=== PATIENT | male | born 1975 | race Two or more races ===

== ENCOUNTER → 2024-08-09 | Outpatient (CLI) | payer BC, SELFPAY ==
--- NOTE | 2024-08-09 15:00 | XR_ITS ---
Examination: Abdomen sonogram, complete Date and time of exam: August 09, 2024 1535 hours INDICATIONS: Right upper abdominal pain beginning 3 weeks ago. Technique: Multiple real-time grayscale transabdominal sonographic images of the abdomen have been obtained. Findings: Negative for gallstones Gallbladder wall 0.47 cm no edema Common bile duct 0.4 cm Pancreatic head 3.6 cm Liver 18.2 cm fatty infiltration Normal hepatopedal portal venous flow Patent IVC Right kidney 11.8 x 6.0 x 5.5 cm cortex 2.4 cm Left kidney 10.9 x 6.1 x 5.5 cm cortex 1.9 cm Mild bilateral renal parenchymal scar formation Spleen 11.4 cm IMPRESSION: Negative for cholelithiasis Borderline thickening gallbladder wall 0.47 cm Mildly prominent pancreatic head 3.6 cm, clinical correlation advised Mild hepatomegaly fatty liver Mild bilateral renal parenchymal scar formation
[2024-08-09 16:27] LABS: Collection Type, Urine Clean Catch
[2024-08-09 17:07] LABS: Basophils % (Auto) 0 % (0-2.5); Eosinophils # (Auto) 0.1 Thou/mm3 (0.0-0.5); Eosinophils % (Auto) 1 % (0-10); Hematocrit 43.4 % (41.0-53.0); Hemoglobin 14.5 g/dL (13.5-16.0); Immature Granulocytes % (Auto) 0 % (0-0); Immature Granulocytes Auto 0.04 Thou/mm3 (0.00-0.00); Lymphocytes # (Auto) 2.4 Thou/mm3 (1.0-4.8); Lymphocytes % (Auto) 23 % (10-50); Mean Corpuscular HGB Conc 33.4 g/dl (31.0-37.0); Mean Corpuscular Hemoglobin 28.5 pg (25.0-35.0); Mean Corpuscular Volume 85 fL (80-100); Monocytes % (Auto) 10 % (0-12); Neutrophils # (Auto) 6.9 Thou/mm3 (1.8-7.7); Neutrophils % (Auto) 66 % (37-80); Nucleated Red Blood Cell % 0 /100 WBC (0); Platelet Count 278 Thou/mm3 (140-440); Red Blood Count 5.09 Miln/mm3 (4.50-5.90); White Blood Count 10.5 Thou/mm3 (3.8-10.6)
[2024-08-09 17:23] LABS: Bilirubin,Urine Negative (Negative); Blood,Urine 1+ (Negative); Clarity,Urine Clear (Clear/Hazy); Color,Urine Yellow (Lt Yel-Yel); Culture Indicated,Urine Not Indicated; Glucose, Urine Negative (Negative); Ketones,Urine 1+ (Negative); Leukocyte Esterase,Urine Negative (Negative); Nitrite,Urine Negative (Negative); Protein,Urine Trace (Neg - Trace); RBC,Urine 4 /hpf (0-3); Specific Gravity,Urine 1.031 (1.001-1.035); Squamous Epithelial Cell,Urine 1 /hpf (0-5); Urobilinogen,Urine Negative mg/dL (0.0-1.0); WBC,Urine 3 /hpf (0-5)
[2024-08-09 17:40] LABS: Glucose Estimated Average 120 mg/dL (80-131); Hemoglobin A1C 5.8 % Hgb (4.8-6.0)
[2024-08-09 17:57] LABS: Alanine Aminotransferase 26 U/L (10-49); Albumin, Serum 4.3 gm/dL (3.5-5.0); Albumin/Globulin Ratio 1.7 (1.2-2.2); Alkaline Phosphatase 95 U/L (46-116); Anion Gap 8 (7-16); Aspartate Amino Transferase 13 U/L (0-34); BUN/Creatinine Ratio 16 Ratio (12-20); Bilirubin,Total 0.3 mg/dL (0.3-1.2); Blood Urea Nitrogen 13 mg/dL (9-23); Calcium 9.7 mg/dL (8.3-10.6); Calcium (Corrected) 9.7 mg/dL (8.5-10.1); Carbon Dioxide 30.3 mMol/L (20.0-31.0); Chloride 103 mMol/L (98-107); Creatinine (Component) 0.8 mg/dL (0.6-1.3); Globulin 2.5 gm/dL (2.3-3.5); Glucose 101 mg/dL (74-106); Osmolality,Calculated 281 (275-295); Potassium 4.1 mMol/L (3.4-5.1); Sodium 141 mMol/L (136-145); Total Protein 6.8 gm/dL (5.7-8.2); eGFR > 60 See Note
== END | disposition home or self-care (01) ==
LOC: CDIM 15:03 → COPL 15:49
PROVIDERS: PCP Family Medicine; Referring Provider Family Medicine; Visit Provider Family Medicine
DX: N32.89 Other specified disorders of bladder (principal); K86.89 Other specified diseases of pancreas; K76.0 Fatty (change of) liver, not elsewhere classified; N28.89 Other specified disorders of kidney and ureter; R10.31 Right lower quadrant pain; R73.03 Prediabetes
CPT/HCPCS: 36415; 76700; 80053; 81001; 83036; 85025

== ENCOUNTER 2024-11-04 06:15 | Day surgery (SDC) | payer BC, SELFPAY ==
--- NOTE | 2024-11-01 09:17 | EKG_ITS ---
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
[2024-11-01 11:36] LABS: Basophils % (Auto) 1 % (0-2.5); Eosinophils # (Auto) 0.1 Thou/mm3 (0.0-0.5); Eosinophils % (Auto) 2 % (0-10); Hematocrit 41.5 % (41.0-53.0); Hemoglobin 13.9 g/dL (13.5-16.0); Immature Granulocytes % (Auto) 0 % (0-0); Immature Granulocytes Auto 0.03 Thou/mm3 (0.00-0.00); Lymphocytes # (Auto) 1.7 Thou/mm3 (1.0-4.8); Lymphocytes % (Auto) 21 % (10-50); Mean Corpuscular HGB Conc 33.5 g/dl (31.0-37.0); Mean Corpuscular Hemoglobin 28.7 pg (25.0-35.0); Mean Corpuscular Volume 86 fL (80-100); Monocytes # (Auto) 0.8 Thou/mm3 (0.0-0.8); Monocytes % (Auto) 10 % (0-12); Neutrophils # (Auto) 5.4 Thou/mm3 (1.8-7.7); Neutrophils % (Auto) 67 % (37-80); Nucleated Red Blood Cell % 0 /100 WBC (0); Platelet Count 249 Thou/mm3 (140-440); RDW Standard Deviation 44.1 fL (35.1-43.9); Red Blood Count 4.84 Miln/mm3 (4.50-5.90)
[2024-11-01 11:44] LABS: Alanine Aminotransferase 20 U/L (10-49); Albumin, Serum 4.2 gm/dL (3.5-5.0); Albumin/Globulin Ratio 1.5 (1.2-2.2); Alkaline Phosphatase 91 U/L (46-116); Anion Gap 5 (7-16); Aspartate Amino Transferase 14 U/L (0-34); BUN/Creatinine Ratio 15 Ratio (12-20); Bilirubin,Total 0.5 mg/dL (0.3-1.2); Blood Urea Nitrogen 12 mg/dL (9-23); Calcium 8.9 mg/dL (8.3-10.6); Calcium (Corrected) 8.9 mg/dL (8.5-10.1); Carbon Dioxide 30.5 mMol/L (20.0-31.0); Chloride 104 mMol/L (98-107); Creatinine (Component) 0.8 mg/dL (0.6-1.3); Globulin 2.8 gm/dL (2.3-3.5); Glucose 122 mg/dL (74-106); Osmolality,Calculated 278 (275-295); Potassium 4.1 mMol/L (3.4-5.1); Sodium 139 mMol/L (136-145); eGFR > 60 See Note
[2024-11-01 11:46] LABS: Prothrombin Time 10.5 Seconds (9.0-12.2)
[2024-11-01 13:57] VITALS: BMI 55.7
[2024-11-04] VITALS (7 sets, daily range): BP systolic 110–168; BP diastolic 66–96; PULSE 73–84; RESP 12–18; TEMP 36.2–36.3; O2SAT 95–98; BMI 58.4
--- NOTE | 2024-11-04 08:55 | SUR.PHASEII ---
pt received from OR in recovery bay 1. pt awake and alert, breathing unlabored on room air. v/s stable. report received from Yaz ZIMMERMAN.
--- NOTE | 2024-11-04 09:30 | SUR.PHASEII ---
pt awake and alert, breathing unlabored on room air. v/s stable. pt able to ambulate to wheelchair with steady gait. d/c instructions given with [place] in room, all questions answered. pt d/c via wheelchair with all belongings.
== END 2024-11-04 09:30 | disposition home or self-care (01) ==
PROVIDERS: PCP Family Medicine; Referring Provider Specialist; Visit Provider Specialist
PROC: 0DJD8ZZ Inspection of Lower Intestinal Tract, Via Natural or Artificial Opening Endoscopic (ICD-10-PCS; CPT 45378; principal; 2024-11-04 07:45)
PROC: (CPT 43239; 2024-11-04 07:45)
DX: K29.50 Unspecified chronic gastritis without bleeding (principal); K20.90 Esophagitis, unspecified without bleeding; K64.9 Unspecified hemorrhoids; E66.01 Morbid (severe) obesity due to excess calories; Z68.44 Body mass index [BMI] 60.0-69.9, adult; Z01.810 Encounter for preprocedural cardiovascular examination; Z87.19 Personal history of other diseases of the digestive system; Z87.442 Personal history of urinary calculi
CPT/HCPCS: 43239; 45378; 36415; 80053; 85025; 85610; 93005; A4217; A4649

== ENCOUNTER → 2025-03-21 | Outpatient (CLI) | payer BC, SELFPAY ==
--- NOTE | 2025-03-21 12:34 | XR_ITS ---
Examination: Left knee 4 views TECHNIQUE: AP oblique lateral axial left knee 4 views Date and time: March 21, 2025, 1241 hours INDICATIONS: Left knee pain 5 days. FINDINGS: Calcification ossification in the distal femur, likely bone infarct Prominent osteopenia Advanced tricompartment osteoarthritis, no fracture or patellar dislocation IMPRESSION: Advanced left knee tricompartment osteoarthritis
== END | disposition home or self-care (01) ==
LOC: CDIM 12:18
PROVIDERS: PCP Family Medicine; Referring Provider Student in an Organized Health Care Education/Training Program; Visit Provider Student in an Organized Health Care Education/Training Program
DX: M17.12 Unilateral primary osteoarthritis, left knee (principal)
CPT/HCPCS: 73564

== ENCOUNTER → 2025-05-08 | Outpatient (CLI) | payer BC, SELFPAY ==
--- NOTE | 2025-05-08 15:00 | XR_ITS ---
Exam: MRI knee without contrast, left complete Date and time of exam: May 08, 2025, 1644 hours INDICATIONS: Diagnosis primary unilateral osteoarthritis left knee left knee stiffness swelling joint clicking 1 year Technique: Multiple axial, coronal, and sagittal sections on the knee have been obtained. T2-Weighted sagittal, fat-suppressed images, TR 3,500, TE 62, T2 weighted coronal fat-saturated images, TR 3,500, TE 62 Proton density sagittal sections, TR 1800, TE 31. T-1 weighted coronal images, TR 524, TE 13.0 Findings: Medial meniscus anterior horn intact. Medial meniscus, body meniscocapsular separation Posterior horn medial meniscus intact. Lateral meniscus anterior horn replaced by isointense signal Lateral meniscus, body is truncation inner margin Posterior horn lateral meniscus is intact Anterior cruciate ligament appears intact. Posterior cruciate ligament appears intact. Knee effusion is moderate. Quadriceps and patellar tendons appear intact. There is no evidence of tendinosis. Inflammatory change or fracture of Hoffa's fat pad is not seen. Medial patellar facet demonstrates moderate thinning. Lateral patellar facet cartilage demonstrates moderate thinning. Trochlear cartilage demonstrates moderate thinning. Marrow signal adequate. Medial collateral ligament appears intact. Illiotibial band and fibular collateral ligament are intact. Biceps femoris tendons appear intact. Medial femoral condylar articular cartilage demonstrates moderate thinning. Lateral femoral condylar articular cartilage demonstrates moderate thinning. Tibial plateau cartilage demonstrates moderate thinning. Impression: Extensive lateral meniscus tears Meniscocapsular separation body the medial meniscus
== END | disposition home or self-care (01) ==
PROVIDERS: PCP Family Medicine; Referring Provider Student in an Organized Health Care Education/Training Program; Visit Provider Student in an Organized Health Care Education/Training Program
DX: S83.282A Other tear of lateral meniscus, current injury, left knee, initial encounter (principal); S83.195A Other dislocation of left knee, initial encounter; X58.XXXA Exposure to other specified factors, initial encounter
CPT/HCPCS: 73721